=== PATIENT | male | born 1990 | race Two or more races ===

== ENCOUNTER → 2016-09-09 | Outpatient (CLI) | payer BC ==
--- NOTE | 2016-09-09 08:57 | RAD ---
Right calcaneus radiographs History: Right heel pain for 3 days, abscess on bottom of heel. Comparison: None. Findings: Axial and lateral views of the right calcaneus. No acute fracture or dislocation is identified. No osteolysis is appreciated. No convincing soft tissue gas or radiopaque foreign body is appreciated. Impression: No acute osseous abnormality identified.
== END | disposition home or self-care (01) ==
LOC: DXRADRC 08:17
PROVIDERS: ATTEND Physician Assistant Medical
DX: M79.671 Pain in right foot (principal); L02.91 Cutaneous abscess, unspecified
CPT/HCPCS: 73650